=== PATIENT | male | born 1980 | race Two or more races ===

== ENCOUNTER 2019-06-07 21:20 | Emergency (ER) | payer MEDICAID ==
[~2019-06-07] VITALS: Ht 182.9 cm; Wt 128.8 kg
[2019-06-07 21:30] VITALS: BP 135/75
== END 2019-06-08 00:18 | disposition home or self-care (01) ==
LOC: ER 21:27
DX: S93.402A Sprain of unspecified ligament of left ankle, initial encounter (principal); W23.0XXA Caught, crushed, jammed, or pinched between moving objects, initial encounter; Y93.89 Activity, other specified; Y92.89 Other specified places as the place of occurrence of the external cause; Y99.8 Other external cause status
CPT/HCPCS: 73590; 73610

== ENCOUNTER → 2019-07-25 | Emergency (ER) | payer MEDICAID ==
[~2019-07-25] VITALS: Ht 182.9 cm; Wt 129.3 kg
[~2019-07-25] MED LIST: FAMOTIDINE 20 MG TAB PO ONE; methylPREDNISolone SOD SUCC 125 MG/2 ML VL IM ONE
[2019-07-25 22:06] VITALS: BP 142/87
== END | disposition home or self-care (01) ==
LOC: ER 20:04
DX: L23.9 Allergic contact dermatitis, unspecified cause (principal)
CPT/HCPCS: 99283; J2930